=== PATIENT | male | born 1965 | race Caucasian/White ===

== ENCOUNTER 2019-02-26 15:44 | Emergency (ER) | payer SELFPAY ==
[~2019-02-26] VITALS: Wt 80.0 kg
[2019-02-26 15:56] VITALS: BP 161/77; PULSE 99; RESP 18
[2019-02-26] MEDS ORDERED: SULF1TAB31 PO (17:04)
[2019-02-26] MEDS ORDERED: CEPH-443 PO (17:04)
--- NOTE | 2019-02-26 17:54 | ERD ---
ER Documentation Chief Complaint Chief Complaint RIGHT UPPER BACK ABCESS X 4 DAYS HPI 53-year-old male presents to the ED complaining of progressively increasing right upper back abscess for the past 4 days. 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 He states he noticed swelling and redness since then. Reports associated sharp, pounding pain as well. He reports some spontaneous discharge. Denies any fevers or chills. No other complaints. ROS All systems reviewed and are negative except as per history of present illness. Medications Home Meds Active Scripts Cephalexin* (Keflex*) 500 Mg Capsule, 500 MG PO QID for 5 Days, CAP Prov:DISHIGRIKIAN,ZEPYUR N PA-C 02/26/19 Sulfamethoxazole/Trimethoprim* (Bactrim Ds* Tablet) 1 Each Tablet, 1 TAB PO BID for 7 Days, #14 TAB Prov:DISHIGRIKIAN,ZEPYUR N PA-C 02/26/19 PMhx/Soc Hx Alcohol Use: No Hx Substance Use: No Hx Tobacco Use: No Smoking Status: Never smoker Physical Exam Vitals Vital Signs Date Temp Pulse Resp B/P (MAP) Pulse Ox O2 O2 Flow FiO2 Time Delivery Rate 02/26/19 98.1 99 18 161/77 99 15:56 (105) Physical Exam Const: No acute distress Head: Atraumatic Eyes: Normal Conjunctiva ENT: Normal External Ears, Nose and Mouth. Neck: Full range of motion. No meningismus Skin: + Approximately 5 x 4 cm area of erythema and induration on left upper back, with central nodule. Small amount of spontaneous white discharge visualized. No fluctuance. No streaking. Back: No midline tenderness Ext: No cyanosis, or edema Neur: Awake and alert Psych: Normal Mood and Affect Procedures/MDM 83-year-old male with a past medical history presents with an abscess to his right upper back. There is no clear area of fluctuance at this time, therefore incision and drainage was not attempted. Patient has evidence of what appears to be MRSA associated cellulitis. Will cover with Rx antibiotics. Given prescr iption for Bactrim and Keflex to take for the next few days. His vital signs are stable here and he has no fever. I have suspicion for sepsis or any other deep space tissue infection. Patient can be discharged home with follow-up. Strict return precautions were discussed. Blood Pressure Assessment: Patient's blood pressure was elevated (>120/80) but appears stable without evidence of hypertension emergency or urgency. The patient was counseled about the risks of hypertension and urged to pursue outpat ient monitoring and therapy within a week with their primary care physician. Departure Diagnosis: Primary Impression: Abscess Additional Impression: Cellulitis Site of cellulitis: trunk Site of cellulitis of trunk: back Qualified Codes: L03.312 - Cellulitis of back [any part except buttock] Condition: Stable Patient Instructions: Abscess, Antiobiotic Treatment Only, Mrsa Skin Infection, Suspected Or Confirmed Additional Instructions: Must take the entire course of antibiotics. Monitor for any worsening pain, fevers, chills or any other complaints. Paciente aconseja volver a Departamento de urgencias inmediatamente para sntomas nuevos o que empeoran . Paciente aconseja posteriores con el PCP en 1-2 pagan. Si el paciente no tiene ninguna de atencin primaria pueden seguir con [facility] [address] [place] [address] o [facility] + [address] [id number] ENRIQUE BOCANEGRA PA-C February 26, 2019 17:54
== END 2019-02-26 17:47 | disposition home or self-care (01) ==
LOC: FTE 15:44
DX: L02.212 Cutaneous abscess of back [any part, except buttock and flank] (principal); L03.312 Cellulitis of back [any part except buttock and flank]
CPT/HCPCS: 99283